=== PATIENT | male | born 1935 | race Asian ===

== ENCOUNTER 2017-01-20 11:06 | Observation (INO) | payer OTHER ==
--- NOTE | 2017-01-20 11:24 | PDOC ---
Attending Attestation - Resident Resident Name: Traci Arreguin - HPI HPI: 01/27/17 10:10 Pt presents to the ED complaining of vertigo that has now resolved. Reported to PMD that he was unable to walk during the episode. Sent to the ED for possible TIA. - Physicial Exam PE: 01/27/17 10:34 Agree with resident exam. PAtient is neurologically intact and ambulatory with a steady gait. - Medical Decision Making 01/27/17 10:42 Pt presents to the ED complaining of vertigo. Neurologically intact without symptoms at this time. Will admit to medicine for TIA work up.
--- NOTE | 2017-01-20 12:48 | PDOC ---
History of Present Illness - General Chief Complaint: Blood Pressure Problem Stated Complaint: BLOOD PRESSURE PROBLEM Time Seen by Provider: 01/20/17 11:23 History Source: Patient, Family Exam Limitations: No Limitations - History of Present Illness Initial Comments: This is an 81 YOM with h/o NIDDM, HTN, prostate CA s/p treatment, and distant ICH requiring surgery who presents c/o dizziness. He cannot recall the exact timing of the dizziness, but states it occurred overnight at about midnight when he stood up from bed to use the bathroom. He told his family about this in the morning and they brought him to see his PCP, Dr. Decker, who was concerned that he reported not being able to walk during this episode. Dr. Decker instructed the patient to come into the ED for evaluation. Here in the ED, the patient is somewhat of an unreliable historian. He cannot further describe the dizziness or the timing. He denies any associated symptoms, or any recent illness, falls, or other injuries. Past History - Past Medical History Allergies/Adverse Reactions: Allergies Allergy/AdvReac Type Severity Reaction Status Date / Time No Known Allergies Allergy Verified 01/20/17 11:08 Home Medications: Ambulatory Orders Aspirin/Dipyridamole [Aggrenox -] 1 combo PO BID #60 capsule 01/21/17 Bicalutamide 50 mg PO DAILY #0 tab 01/21/17 Cholecalciferol (Vitamin D3) [Vitamin D3] 2,000 unit PO DAILY #0 tab 01/21/17 Cyanocobalamin [Vitamin B12 -] 1,000 mcg PO DAILY #0 tab 01/21/17 Fenofibrate Nanocrystallized [Tricor] 145 mg PO DAILY #0 tab 01/21/17 Ferrous Sulfate 325 mg PO BID #0 tab 01/21/17 Metformin HCl 500 mg PO BID #0 tab 01/21/17 Oxybutynin Chloride 5 mg PO DAILY #0 tab 01/21/17 Oxybutynin Chloride [Ditropan -] 5 mg PO BID tablet 01/21/17 Ramipril 5 mg PO DAILY #0 tab 01/21/17 Ramipril [Altace] 5 mg PO DAILY capsule 01/21/17 Tamsulosin HCl 0.4 mg PO DAILY #0 tab 01/21/17 Tamsulosin HCl [Flomax -] 0.4 mg PO DAILY@0830 cap.er.24h 01/21/17 Metoprolol Tartrate [Lopressor -] 25 mg PO BID #60 tablet 01/23/17 Cancer: Yes (PROSTATE) COPD: No Diabetes: Yes HTN: Yes - Surgical History Neurologic Surgery: Yes (BRAIN) - Suicide/Smoking/Psychosocial Hx Smoking History: Never smoked Have you smoked in the past 12 months: No Hx Alcohol Use: No Drug/Substance Use Hx: No Substance Use Type: None Review of Systems - Review of Systems Able to Perform ROS?: Yes Constitutional: No: Chills, Fever, Unexplained wgt Loss HEENTM: No: Nose Congestion, Throat Pain Respiratory: No: Cough, Shortness of Breath Cardiac (ROS): No: Chest Pain, Palpitations ABD/GI: No: Constipated, Diarrhea, Nausea, Vomiting : No: Burning, Dysuria Musculoskeletal: No: Back Pain, Neck Pain Integumentary: No: Bruising, Rash Neurological: Yes: Dizziness, Other (difficulty walking). No: Headache, Numbness, Tingling Endocrine: No: Unexplained Weight Gain, Unexplained Weight Loss *Physical Exam - Vital Signs Last Vital Signs Temp Pulse Resp BP Pulse Ox 98.6 F 61 20 131/71 96 01/23/17 02:00 01/23/17 06:00 01/23/17 06:00 01/23/17 06:00 01/23/17 09:00 - Physical Exam General Appearance: Yes: Nourished, Appropriately Dressed, Other (pleasant elderly male accompanied by supportive family members, patient answers many questions regarding recent events with "yo no se", pleasant, alert, and oriented ). No: Apparent Distress HEENT: positive: EOMI, ZENY, Normal Voice, Hearing Grossly Normal. negative: Scleral Icterus (R), Scleral Icterus (L), Nasal Congestion Neck: positive: Trachea midline, Supple. negative: Tender, Rigid Respiratory/Chest: positive: Lungs Clear, Normal Breath Sounds. negative: Respiratory Distress, Crackles, Rhonchi, Stridor, Wheezing Cardiovascular: positive: Regular Rhythm, Regular Rate. negative: Murmur Gastrointestinal/Abdominal: positive: Normal Bowel Sounds, Soft. negative: Tender, Organomegaly, Pulsatile Mass, Guarding Musculoskeletal: positive: Normal Inspection. negative: Decreased Range of Motion, Vertebral Tenderness Extremity: positive: Normal Capillary Refill, Normal Inspection, Normal Range of Motion. negative: Tender, Cyanosis Integumentary: positive: Normal Color, Dry, Warm. negative: Erythema, Rash, Bruising Neurologic: positive: desktop support technician II-XII NML intact, Fully Oriented, Alert, Normal Mood/ Affect, Normal Response, Motor Strength 5/5, Finger to Nose (normal), Other ( gait normal except heel-to-toe gait during which patient falls to the left on repeated tries). negative: Facial Droop, Numbness, Sensory Deficit, Confused ED Treatment Course - LABORATORY CBC & Chemistry Diagram: 01/20/17 12:55 01/23/17 08:50 - ADDITIONAL ORDERS Additional order review: 01/20/17 12:55 RBC 3.88 L MCV 96.3 H MCHC 32.7 RDW 13.6 MPV 11.5 H Neutrophils % 73.5 Lymphocytes % 14.8 D Monocytes % 8.3 Eosinophils % 2.4 D Basophils % 1.0 - RADIOLOGY Radiology Studies Ordered: Category Date Time Status BRAIN MRI W/O CONTRAST [MRI] Stat MRI 01/20/17 12:50 Completed CHEST PA & LAT [RAD] Stat Radiology 01/20/17 12:52 Completed - Medications Given in the ED: ED Medications Discontinued Medications Generic Name Dose Route Start Last Admin Trade Name Freq PRN Reason Stop Dose Admin Dipyridamole/Aspirin 1 combo 01/21/17 08:50 01/23/17 09:27 Aggrenox - PO 1 combo BID KUNAL Administration Insulin Aspart 1 vial 01/20/17 12:30 01/23/17 07:02 Novolog Vial Sliding Scale - SQ Not Given [facility] Protocol Metformin HCl 500 mg 01/20/17 12:30 01/21/17 17:20 Glucophage - PO Not Given BID@0700,1630 [facility] Metoprolol Tartrate 50 mg 01/21/17 17:31 01/21/17 17:51 Lopressor - PO 01/21/17 17:32 50 mg ONCE ONE Administration Metoprolol Tartrate 25 mg 01/22/17 22:00 01/23/17 09:27 Lopressor - PO 25 mg BID KUNAL Administration Oxybutynin Chloride 5 mg 01/20/17 22:00 01/23/17 09:27 Ditropan - PO 5 mg BID KUNAL Administration Ramipril 5 mg 01/21/17 10:00 01/23/17 09:27 Altace - PO 5 mg DAILY KUNAL Administration Sitagliptin Phosphate 50 mg 01/20/17 12:30 01/23/17 07:04 Januvia - PO 50 mg DAILY@0700 KUNAL Administration Tamsulosin HCl 0.4 mg 01/20/17 12:30 01/23/17 09:27 Flomax - PO 0.4 mg DAILY@0830 KUNAL Administration Medical Decision Making - Medical Decision Making 81 YOM with h/o NIDDM, HTN, prostate CA s/p treatment, and distant ICH requiring surgery. Presents with vague room-spinning dizziness since an unknown time as Pt has some difficulty with timeline of events. His best guess is that this began just after midnight this morning. Questionable also whether his symptoms are episodic, or mild persistent. On exam VS wnl, no focal deficits, but gait is unsteady when heel-to-toe walking , otherwise exam wnl. Ordered is MRI brain, CXR, EKG, CBCD, CMP, Mg, Phos, TS, coags, UA cx MRI brain without e/o acute intracranial process. Lab work unremarkable. He is not a TPA candidate given that the estimated time of onset was around midnight per the patient. He also has minimal disability on NIHSS. The patient is admitted to telemetry to Dr. Decker, given continued symptoms and unsteady gait on exam. *DC/Admit/Observation/Transfer Diagnosis at time of Disposition: Dizziness - Discharge Dispostion Disposition: TRANSFER ACUTE CARE/OTHER HOSP Condition at time of disposition: Fair Admit: Yes - Prescriptions - Referrals - Patient Instructions - Post Discharge Activity NIH Stroke Scale - Last Known Well Date/Time & Onset Date Last Known Well: 01/20/17 Time Last Known Well: 00:05 - Initial Evaluation Level of consciousness: Alert Ask patient the month and their age: Answers both correctly Ask patient to open & close eyes; make fist and let go: Obeys both correctly Best gaze (horizontal eye movement): Normal Visual field testing: No visual field loss Facial paresis (Show teeth/raise eyebrows/close eyes tight): Normal symmetrical movement Motor Function: Left Arm: Normal Motor Function: Right Arm: Normal (extends arm 90 (or 45) degrees for 10 seconds without drift Motor Function: Left Leg: Normal (extends leg 30 degrees for 5 seconds without drift) Motor Function: Right Leg: Normal (extends leg 30 degrees for 5 seconds without drift) Limb Ataxia: No ataxia Sensory(Use pinprick test arms,legs,trunk,face/side to side): Normal Best language (Describe picture, name items, read sentences): No Aphasia Dysarthria (read several words): Normal articulation Extinction and Inattention: No abnormality - Total Score NIH Stroke Scale Score: 0 tPA Exclusion checklist 3-4.5h - Time Elapsed Date last known well: 01/20/17 Time last known well: 00:05 Elaspsed time: 12 Day(s) and 18 Hour(s) and 18 Minutes - Thrombolytic Therapy Candidate Is patient eligible for thrombolytic therapy: No - Exclusion Criteria 3-4.5 hr SBP greater than 185 or DBP greater than 110mmHg despite tx: No Recent IC/spinal surgery,head trauma or stroke<3mos.: No Hx IC hemorrhage, IC neoplasm, AV malformation or aneurysm: Yes Active internal bleeding: No Blding diathesis(low plt ct, inc PTT,INR>1.7 or use of NOAC): No Symptoms suggest subarachnoid hemorrhage: No CT demonstrates multilobar infarct(>1/3 cerebral hemiphere): No Arterial puncture at noncompressible site in previous 7 days: No Blood glucose concentration less than 50mg/dL (2.7mmol/L): No - Relative Exclusion Criteria 3-4.5 hr Life expectancy <1 yr or severe co-morbid illness: No : No Patient/family refused: No Rapid improvement: No Stroke severity too mild: Yes Recent acute PR (w/in previous 3 months): No Seizure at onset with postictal residual neuro impairments: No Major surgery or serious trauma w/in previous 14 days: No Recent GI or hemorrhage (w/in previous 21 days): No - Add'l Relative Exclusion 3-4.5 hr Age > 80: Yes Hx of both diabetes AND prior ischemic stroke: No Taking an oral anticoagulant regardless of INR: No NIHSS >25: No - Ineligibility reason(s) Reasons No tPA given: See reason(s) noted above
[2017-01-20 13:35] LABS: ALBUMIN 4.3 g/dl (3.4-5.0); ANION GAP 9 (8-16); BILIRUBIN,TOTAL 0.4 mg/dL (0.2-1.0); CALCIUM 9.4 mg/dL (8.5-10.1); CO2 26 mmol/L (21-32); CREATININE 1.1 mg/dL (0.7-1.3); GLUCOSE,RANDOM 79 mg/dL (74-106); PHOSPHOROUS 3.2 mg/dL (2.5-4.9); SGOT/AST 17 U/L (15-37); SGPT/ALT 18 U/L (12-78); TOT PROT 7.4 g/dl (6.4-8.2)
[2017-01-20 13:36] LABS: ALK PHOS 21 U/L (45-117)
[2017-01-20 13:39] LABS: EOSINOPHIL 2.4 % (0-4.5); MCH 31.5 pg (25.7-33.7); MCHC 32.7 g/dl (32.0-35.9); MEAN CELL VOLUME 96.3 fl (80-96); MEAN PLT VOLUME 11.5 fl (7.5-11.1); NEUTROPHILS 73.5 % (42.8-82.8); PLATELET COUNT 126 K/MM3 (134-434); RDW 13.6 % (11.9-15.9); WHITE BLOOD COUNT 4.3 K/mm3 (4.0-10.0)
[2017-01-20 14:30] LABS: INR 0.96 (0.82-1.09); PROTHROMBIN TIME (PATIENT) 10.9 SEC (9.98-11.88)
[2017-01-20 14:33] LABS: ACTIVATED PTT 27.1 SECONDS (26.9-34.4)
[2017-01-20] MEDS ORDERED: metFORMIN HCL 500 MG TABLET (FP) ONE (15:05)
[2017-01-20] MEDS ORDERED: sitaGLIPtin PHOSPHATE 50 MG TABLET ONE (15:05)
[2017-01-20] MEDS ORDERED: TAMSULOSIN HCL 0.4 MG CAP.ER.24H (FP) ONE (15:05)
[2017-01-20] MEDS: sitaGLIPtin PHOSPHATE 50 MG TABLET PO SCH (15:07)
[2017-01-20] MEDS: TAMSULOSIN HCL 0.4 MG CAP.ER.24H (FP) PO SCH (15:07)
[2017-01-20] MEDS: metFORMIN HCL 500 MG TABLET (FP) PO SCH ×2 (15:07→16:51)
--- NOTE | 2017-01-20 15:21 | HP ---
Admitting History and Physical - Primary Care Physician PCP: Pollo Decker - Admission Chief Complaint: DIZZY/PRESYNCOPE History of Present Illness: SENT FROM MY OFFICE WITH ORTHOSTATIC HYPOTENSION, DM,C/O DIZZINESS AND UNSTEADY GAIT. DENIES HEADACHE/CHEST PAIN/SOB. History Source: Patient - Past Medical History Cardiovascular: Yes: HTN Endocrine: Yes: Diabetes Mellitus - Smoking History Smoking history: Never smoked Have you smoked in the past 12 months: No - Alcohol/Substance Use Hx Alcohol Use: No Home Medications - Allergies Allergies/Adverse Reactions: Allergies Allergy/AdvReac Type Severity Reaction Status Date / Time No Known Allergies Allergy Verified 01/20/17 11:08 - Home Medications Home Medications: Ambulatory Orders Aspirin [ASA -] 81 mg PO ASDIR 06/09/15 Bicalutamide 50 mg PO DAILY 06/09/15 Metformin HCl 500 mg PO BID 06/09/15 Oxybutynin Chloride 5 mg PO DAILY 06/09/15 Ramipril 5 mg PO DAILY 06/09/15 Tamsulosin HCl 0.4 mg PO DAILY 06/09/15 Cholecalciferol (Vitamin D3) [Vitamin D3] 2,000 unit PO DAILY 01/20/17 Cyanocobalamin [Vitamin B12 -] 1,000 mcg PO DAILY 01/20/17 Fenofibrate Nanocrystallized [Tricor] 145 mg PO DAILY 01/20/17 Ferrous Sulfate 325 mg PO BID 01/20/17 Saxagliptin HCl [Onglyza] 5 mg PO DAILY 01/20/17 Review of Systems - Review of Systems Constitutional: reports: Weakness Eyes: reports: No Symptoms HENT: reports: No Symptoms Neck: reports: No Symptoms Cardiovascular: reports: No Symptoms Respiratory: reports: No Symptoms Gastrointestinal: reports: No Symptoms Genitourinary: reports: No Symptoms Musculoskeletal: reports: No Symptoms Integumentary: reports: No Symptoms Neurological: reports: Dizziness, Pre-Existing Deficit, Syncope, Weakness Endocrine: reports: No Symptoms Hematology/Lymphatic: reports: No Symptoms Psychiatric: reports: No Symptoms Physical Examination Vital Signs: Vital Signs Temperature 97.7 F 01/20/17 11:09 Pulse Rate 62 01/20/17 11:35 Respiratory Rate 18 01/20/17 11:09 Blood Pressure 147/77 01/20/17 11:09 O2 Sat by Pulse Oximetry (%) 100 01/20/17 11:35 Constitutional: Yes: Mild Distress Eyes: Yes: WNL HENT: Yes: WNL Neck: Yes: WNL Cardiovascular: Yes: WNL Respiratory: Yes: WNL Gastrointestinal: Yes: WNL Renal/: Yes: WNL Musculoskeletal: Yes: Muscle Weakness Extremities: Yes: WNL Edema: No Peripheral Pulses WNL: Yes Integumentary: Yes: WNL Wound/Incision: Yes: Clean/Dry Neurological: Yes: Unsteady Gait ...Motor Strength: WNL Psychiatric: Yes: WNL Labs: CBC, BMP 01/20/17 12:55 01/20/17 12:55 Problem List - Problems (1) DMII (diabetes mellitus, type 2) Code(s): E11.9 - TYPE 2 DIABETES MELLITUS WITHOUT COMPLICATIONS Qualifiers: Diabetes mellitus complication status: without complication (2) Dizziness Code(s): R42 - DIZZINESS AND GIDDINESS (3) Fall Code(s): W19.XXXA - UNSPECIFIED FALL, INITIAL ENCOUNTER Qualifiers: Encounter type: initial encounter Qualified Code(s): W19.XXXA - Unspecified fall, initial encounter Assessment/Plan PT EVAL TELEMETRY OBSERVATION CARDIO AND NEURO EVAL MRI BRAIN OOB TO CHAIR WITH ASSIST ENDOCRINE CONSULT POSSIBLE JANUVIA 100MG WITH METFORMIN TO STRONG
[2017-01-20 15:32] VITALS: BMI 20.6
[2017-01-20 15:56] LABS: URINE APPEARANCE CLEAR; URINE BILIRUBIN NEGATIVE (NEGATIVE); URINE BLOOD NEGATIVE (NEGATIVE); URINE COLOR LTYELLOW; URINE GLUCOSE (UA) NEGATIVE (NEGATIVE); URINE KETONE NEGATIVE (NEGATIVE); URINE NITRITE NEGATIVE (NEGATIVE); URINE PROTEIN NEGATIVE (NEGATIVE); URINE UROBILINOGEN NEGATIVE mg/dL (0.2-1.0)
[2017-01-20] MEDS: INSULIN SLIDING SCALE (NOVOLOG) 1 VIAL SQ SCH ×2 (16:51→22:37)
[2017-01-20 18:52] LABS: URINE LEUK ESTERASE Negative (NEGATIVE)
--- NOTE | 2017-01-20 21:50 | CONSULT ---
Consult Consult Specialty:: endocrine Referred by:: dr.[email or web address] pro Reason for Consultation:: diabetes mellitus/neuropathy - History of Present Illness Chief Complaint: weakness and dizzy History of Present Illness: 81 YOM with h/o NIDDM, HTN, prostate CA s/p treatment, and distant ICH requiring surgery who presents c/o dizziness. He cannot recall the exact timing of the dizziness,. He states it occured at night when he got up to use bathroom felt light headed and weak,family concerned brought him to see his pcp,which warranted evaluation for orthostatic bp concerns,he states his sugars have been occasionaly elevated denies low sugars,or blurred vision. - History Source History Provided By: Patient - Past Medical History Cardio/Vascular: Yes: HTN Endocrine: Yes: Diabetes Mellitus - Alcohol/Substance Use Hx Alcohol Use: No - Smoking History Smoking history: Never smoked Have you smoked in the past 12 months: No Home Medications - Allergies Allergies/Adverse Reactions: Allergies Allergy/AdvReac Type Severity Reaction Status Date / Time No Known Allergies Allergy Verified 01/20/17 11:08 - Home Medications Home Medications: Ambulatory Orders Aspirin [ASA -] 81 mg PO ASDIR 06/09/15 Bicalutamide 50 mg PO DAILY 06/09/15 Metformin HCl 500 mg PO BID 06/09/15 Oxybutynin Chloride 5 mg PO DAILY 06/09/15 Ramipril 5 mg PO DAILY 06/09/15 Tamsulosin HCl 0.4 mg PO DAILY 06/09/15 Cholecalciferol (Vitamin D3) [Vitamin D3] 2,000 unit PO DAILY 01/20/17 Cyanocobalamin [Vitamin B12 -] 1,000 mcg PO DAILY 01/20/17 Fenofibrate Nanocrystallized [Tricor] 145 mg PO DAILY 01/20/17 Ferrous Sulfate 325 mg PO BID 01/20/17 Saxagliptin HCl [Onglyza] 5 mg PO DAILY 01/20/17 Review of Systems - Review of Systems Constitutional: reports: Lethargy, Loss of Appetite, Weakness Eyes: reports: No Symptoms HENT: reports: No Symptoms Neck: reports: No Symptoms Cardiovascular: reports: No Symptoms Respiratory: reports: Exercise Intolerance Gastrointestinal: reports: Bloating, Constipation Genitourinary: reports: Frequency Breasts: reports: No Symptoms Reported Musculoskeletal: reports: No Symptoms Integumentary: reports: No Symptoms Neurological: reports: Numbness, Weakness Endocrine: reports: No Symptoms Physical Exam Vital Signs: Vital Signs Temperature 97.4 F L 01/20/17 17:00 Pulse Rate 63 01/20/17 17:00 Respiratory Rate 18 01/20/17 16:30 Blood Pressure 137/77 01/20/17 17:00 O2 Sat by Pulse Oximetry (%) 100 01/20/17 16:30 Constitutional: Yes: Anxious Eyes: Yes: EOM Intact HENT: Yes: Normocephalic Neck: Yes: Trachea Midline Cardiovascular: Yes: Regular Rate and Rhythm Respiratory: Yes: CTA Bilaterally Gastrointestinal: Yes: Normal Bowel Sounds ...Rectal Exam: Yes: Deferred Renal/: Yes: WNL Musculoskeletal: Yes: WNL Extremities: Yes: WNL Labs: CBC, BMP 01/20/17 12:55 01/20/17 12:55 Problem List - Problems (1) DMII (diabetes mellitus, type 2) Code(s): E11.9 - TYPE 2 DIABETES MELLITUS WITHOUT COMPLICATIONS Qualifiers: Diabetes mellitus complication status: without complication (2) Dizziness Code(s): R42 - DIZZINESS AND GIDDINESS (3) Fall Code(s): W19.XXXA - UNSPECIFIED FALL, INITIAL ENCOUNTER Qualifiers: Encounter type: initial encounter Qualified Code(s): W19.XXXA - Unspecified fall, initial encounter Assessment/Plan Current Active Problems DMII (diabetes mellitus, type 2) (Acute) Dizziness (Acute) Abnormal Lab Results 01/20/17 01/20/17 12:55 12:55 RBC 3.88 L MCV 96.3 H Plt Count 126 L MPV 11.5 H BUN 24 H Alkaline Phosphatase 21 L Laboratory Results - last 24 hr 01/20/17 01/20/17 01/20/17 12:55 12:55 12:55 WBC 4.3 D RBC 3.88 L Hgb 12.2 Hct 37.3 MCV 96.3 H MCH 31.5 MCHC 32.7 RDW 13.6 Plt Count 126 L MPV 11.5 H Neutrophils % 73.5 Lymphocytes % 14.8 D Monocytes % 8.3 Eosinophils % 2.4 D Basophils % 1.0 PT with INR INR PTT (Actin FS) Sodium 139 Potassium 4.2 Chloride 104 Carbon Dioxide 26 Anion Gap 9 BUN 24 H Creatinine 1.1 Creat Clearance w eGFR > 60 POC Glucometer Random Glucose 79 D Hemoglobin A1c % 5.6 Calcium 9.4 Phosphorus 3.2 Magnesium 2.0 Total Bilirubin 0.4 AST 17 ALT 18 Alkaline Phosphatase 21 L Total Protein 7.4 Albumin 4.3 Urine Color Urine Appearance Urine pH Ur Specific [place] Urine Protein Urine Glucose (UA) Urine Ketones Urine Blood Urine Nitrite Urine Bilirubin Urine Urobilinogen Ur Leukocyte Esterase Blood Type Antibody Screen 01/20/17 01/20/17 01/20/17 12:55 12:55 15:42 WBC RBC Hgb Hct MCV MCH MCHC RDW Plt Count MPV Neutrophils % Lymphocytes % Monocytes % Eosinophils % Basophils % PT with INR 10.90 INR 0.96 PTT (Actin FS) 27.1 Sodium Potassium Chloride Carbon Dioxide Anion Gap BUN Creatinine Creat Clearance w eGFR POC Glucometer Random Glucose Hemoglobin A1c % Calcium Phosphorus Magnesium Total Bilirubin AST ALT Alkaline Phosphatase Total Protein Albumin Urine Color Ltyellow Urine Appearance Clear Urine pH 5.0 Ur Specific [place] 1.012 Urine Protein Negative Urine Glucose (UA) Negative Urine Ketones Negative Urine Blood Negative Urine Nitrite Negative Urine Bilirubin Negative Urine Urobilinogen Negative Ur Leukocyte Esterase Negative Blood Type A POSITIVE Antibody Screen Negative 01/20/17 16:46 WBC RBC Hgb Hct MCV MCH MCHC RDW Plt Count MPV Neutrophils % Lymphocytes % Monocytes % Eosinophils % Basophils % PT with INR INR PTT (Actin FS) Sodium Potassium Chloride Carbon Dioxide Anion Gap BUN Creatinine Creat Clearance w eGFR POC Glucometer 195 Random Glucose Hemoglobin A1c % Calcium Phosphorus Magnesium Total Bilirubin AST ALT Alkaline Phosphatase Total Protein Albumin Urine Color Urine Appearance Urine pH Ur Specific [place] Urine Protein Urine Glucose (UA) Urine Ketones Urine Blood Urine Nitrite Urine Bilirubin Urine Urobilinogen Ur Leukocyte Esterase Blood Type Antibody Screen imp: dm type 2 continue janumet 50/500mg bid controlle with current agents
[2017-01-20] MEDS: OXYBUTYNIN CHLORIDE 5 MG TABLET PO SCH (22:37)
[2017-01-21] MEDS: INSULIN SLIDING SCALE (NOVOLOG) 1 VIAL SQ SCH ×4 (06:12→21:27)
[2017-01-21] MEDS: sitaGLIPtin PHOSPHATE 50 MG TABLET PO SCH (06:13)
[2017-01-21] MEDS: metFORMIN HCL 500 MG TABLET (FP) PO SCH ×2 (06:13→17:20)
[2017-01-21 08:07] LABS: CHOLESTEROL 151 mg/dL (50-200)
--- NOTE | 2017-01-21 09:58 | CONSULT ---
Consult - text type - Consultation Consultation Note: Neurology History of Present Illness This is an 81 YOM with h/o NIDDM, HTN, prostate CA s/p treatment, and distant ICH requiring surgery who presents c/o dizziness. He cannot recall the exact timing of the dizziness, but states it occurred overnight at about midnight when he stood up from bed to use the bathroom. He told his family about this in the morning and they brought him to see his PCP, Dr. Decker, who was concerned that he reported not being able to walk during this episode. Dr. Decker instructed the patient to come into the ED for evaluation. Here in the ED, the patient is somewhat of an unreliable historian. He completed MRI brain overnight which showed R posterior frontal CVA which may be incidental vs subclinical. Chronic R thalamick, R basal ganglia, L frontal infarcts noted. Adjusted ASA to Aggrenox for increased CVA protection. Also ordered CD and Echo for further work up. Discussed with patient as well as nurse. Active Medications Dipyridamole/Aspirin (Aggrenox -) 1 combo PO BID [facility] Insulin Aspart (Novolog Vial Sliding Scale -) 1 vial SQ ACHS [facility] PRN Reason: Protocol Last Admin: 01/21/17 06:12 Dose: Not Given Metformin HCl (Glucophage -) 500 mg PO BID@0700,1630 [facility] Last Admin: 01/21/17 06:13 Dose: 500 mg Oxybutynin Chloride (Ditropan -) 5 mg PO BID [facility] Last Admin: 01/20/17 22:37 Dose: 5 mg Ramipril (Altace -) 5 mg PO DAILY [facility] Sitagliptin Phosphate (Januvia -) 50 mg PO DAILY@0700 [facility] Last Admin: 01/21/17 06:13 Dose: 50 mg Tamsulosin HCl (Flomax -) 0.4 mg PO DAILY@0830 [facility] Last Admin: 01/20/17 15:07 Dose: 0.4 mg Review of Systems - Review of Systems Constitutional: reports: Weakness Eyes: reports: No Symptoms HENT: reports: No Symptoms Neck: reports: No Symptoms Cardiovascular: reports: No Symptoms Respiratory: reports: No Symptoms Gastrointestinal: reports: No Symptoms Genitourinary: reports: No Symptoms Musculoskeletal: reports: No Symptoms Integumentary: reports: No Symptoms Neurological: reports: Dizziness, Pre-Existing Deficit, Syncope, Weakness Endocrine: reports: No Symptoms Hematology/Lymphatic: reports: No Symptoms Psychiatric: reports: No Symptoms *Physical Exam Vital Signs Temperature 98.2 F 01/21/17 07:30 Pulse Rate 60 01/21/17 07:30 Respiratory Rate 18 01/21/17 07:30 Blood Pressure 158/76 01/21/17 07:30 O2 Sat by Pulse Oximetry (%) 98 01/20/17 21:00 Constitutional: Yes: Mild Distress Eyes: Yes: WNL HENT: Yes: WNL Neck: Yes: WNL Cardiovascular: Yes: WNL Respiratory: Yes: WNL Gastrointestinal: Yes: WNL Renal/: Yes: WNL Musculoskeletal: Yes: Muscle Weakness Extremities: Yes: WNL Edema: No Peripheral Pulses WNL: Yes Integumentary: Yes: WNL Wound/Incision: Yes: Clean/Dry Neurological: Yes: CN intact, sensory normal, strenght equal b/l, gait antalgic ...Motor Strength: WNL Psychiatric: Yes: WNL CBCD WBC 4.3 K/mm3 (4.0-10.0) D 01/20/17 12:55 RBC 3.88 M/mm3 (4.00-5.60) L 01/20/17 12:55 Hgb 12.2 GM/dL (11.7-16.9) 01/20/17 12:55 Hct 37.3 % (35.4-49) 01/20/17 12:55 MCV 96.3 fl (80-96) H 01/20/17 12:55 MCHC 32.7 g/dl (32.0-35.9) 01/20/17 12:55 RDW 13.6 % (11.9-15.9) 01/20/17 12:55 Plt Count 126 K/MM3 (134-434) L 01/20/17 12:55 MPV 11.5 fl (7.5-11.1) H 01/20/17 12:55 CMP Sodium 139 mmol/L (136-145) 01/20/17 12:55 Potassium 4.2 mmol/L (3.5-5.1) 01/20/17 12:55 Chloride 104 mmol/L (98-107) 01/20/17 12:55 Carbon Dioxide 26 mmol/L (21-32) 01/20/17 12:55 Anion Gap 9 (8-16) 01/20/17 12:55 BUN 24 mg/dL (7-18) H 01/20/17 12:55 Creatinine 1.1 mg/dL (0.7-1.3) 01/20/17 12:55 Creat Clearance w eGFR > 60 (>60) 01/20/17 12:55 Calcium 9.4 mg/dL (8.5-10.1) 01/20/17 12:55 Total Bilirubin 0.4 mg/dL (0.2-1.0) 01/20/17 12:55 AST 17 U/L (15-37) 01/20/17 12:55 ALT 18 U/L (12-78) 01/20/17 12:55 Alkaline Phosphatase 21 U/L (45-117) L 01/20/17 12:55 Total Protein 7.4 g/dl (6.4-8.2) 01/20/17 12:55 Albumin 4.3 g/dl (3.4-5.0) 01/20/17 12:55 Imaging as above Plan 81 YOM with h/o NIDDM, HTN, prostate CA s/p treatment, and distant ICH requiring surgery who presents c/o dizziness. He cannot recall the exact timing of the dizziness, but states it occurred overnight at about midnight when he stood up from bed to use the bathroom. He told his family about this in the morning and they brought him to see his PCP, Dr. Decker, who was concerned that he reported not being able to walk during this episode. Dr. Decker instructed the patient to come into the ED for evaluation. Here in the ED, the patient is somewhat of an unreliable historian. He completed MRI brain overnight which showed R posterior frontal CVA which may be incidental vs subclinical. Chronic R thalamic, R basal ganglia, L frontal infarcts noted. Adjusted ASA to Aggrenox for increased CVA protection. Also ordered CD and Echo for further work up. Blood pressure control, maintain Less than 140/90 Increased hydration recommended Fall precautions Physical therapy Discussed with patient as well as nurse.
[2017-01-21] MEDS ORDERED: ASPIRIN COATED 81 MG TABLET.EC PO SCH (10:00)
[2017-01-21] MEDS: OXYBUTYNIN CHLORIDE 5 MG TABLET PO SCH ×2 (10:32→21:22)
[2017-01-21] MEDS: RAMIPRIL 5 MG CAPSULE (FP) PO SCH (10:32)
[2017-01-21] MEDS: TAMSULOSIN HCL 0.4 MG CAP.ER.24H (FP) PO SCH (10:32)
[2017-01-21] MEDS: ASPIRIN/DIPYRIDAMOLE 25 MG/200 MG CAPSULE (FP) PO SCH ×2 (10:34→21:22)
--- NOTE | 2017-01-21 14:11 | PN ---
Progress Note, Physician - Current Medication List Current Medications: Active Medications Dipyridamole/Aspirin (Aggrenox -) 1 combo PO BID [facility] Last Admin: 01/21/17 10:34 Dose: 1 combo Insulin Aspart (Novolog Vial Sliding Scale -) 1 vial SQ ACHS [facility] PRN Reason: Protocol Last Admin: 01/21/17 12:09 Dose: Not Given Metformin HCl (Glucophage -) 500 mg PO BID@0700,1630 [facility] Last Admin: 01/21/17 06:13 Dose: 500 mg Oxybutynin Chloride (Ditropan -) 5 mg PO BID [facility] Last Admin: 01/21/17 10:32 Dose: 5 mg Ramipril (Altace -) 5 mg PO DAILY [facility] Last Admin: 01/21/17 10:32 Dose: 5 mg Sitagliptin Phosphate (Januvia -) 50 mg PO DAILY@0700 [facility] Last Admin: 01/21/17 06:13 Dose: 50 mg Tamsulosin HCl (Flomax -) 0.4 mg PO DAILY@0830 [facility] Last Admin: 01/21/17 10:32 Dose: 0.4 mg - Objective Vital Signs: Vital Signs Temperature 98.2 F 01/21/17 07:30 Pulse Rate 60 01/21/17 07:30 Respiratory Rate 20 01/21/17 08:00 Blood Pressure 158/76 01/21/17 07:30 O2 Sat by Pulse Oximetry (%) 96 01/21/17 08:00 Labs: CBC, BMP 01/20/17 12:55 01/20/17 12:55 INR, PTT INR 0.96 (0.82-1.09) 01/20/17 12:55 Problem List - Problems (1) DMII (diabetes mellitus, type 2) Code(s): E11.9 - TYPE 2 DIABETES MELLITUS WITHOUT COMPLICATIONS Qualifiers: Diabetes mellitus complication status: without complication (2) Dizziness Code(s): R42 - DIZZINESS AND GIDDINESS (3) Fall Code(s): W19.XXXA - UNSPECIFIED FALL, INITIAL ENCOUNTER Qualifiers: Encounter type: initial encounter Qualified Code(s): W19.XXXA - Unspecified fall, initial encounter
--- NOTE | 2017-01-21 14:21 | DS ---
Physical Examination Vital Signs: Vital Signs Temperature 98.2 F 01/21/17 07:30 Pulse Rate 60 01/21/17 07:30 Respiratory Rate 20 01/21/17 08:00 Blood Pressure 158/76 01/21/17 07:30 O2 Sat by Pulse Oximetry (%) 96 01/21/17 08:00 Findings/Remarks: AWAKE ALERT COMPLETED PT TODAY SOME MEMORY LOSS Constitutional: Yes: Mild Distress Eyes: Yes: WNL HENT: Yes: WNL Neck: Yes: WNL Cardiovascular: Yes: WNL Respiratory: Yes: WNL Gastrointestinal: Yes: WNL Renal/: Yes: WNL Musculoskeletal: Yes: WNL Extremities: Yes: WNL Edema: No Peripheral Pulses WNL: Yes Integumentary: Yes: WNL Wound/Incision: Yes: Clean/Dry Neurological: Yes: Confusion, Unsteady Gait ...Motor Strength: LLE, RLE Psychiatric: Yes: WNL Labs: CBC, BMP 01/20/17 12:55 01/20/17 12:55 Discharge Summary Reason For Visit: DIZZINESS Current Active Problems DMII (diabetes mellitus, type 2) (Acute) Dizziness (Acute) Procedures: Principal: MRI BRAIN Other Procedures: CAROTID DOPPLER Hospital Course: OBSERVATION STATUS, ACUTE CVA, HTN/DM, TREATED WITH AGGRENOX PER NEUROLOGY. LOW DOSE STATIN THERAPY, MONITORED CARDIAC FUNCTION AND BGM. Condition: Fair - Instructions Diet, Activity, Other Instructions: HOME HEALTH AID WITH [facility] ADA/LOW FAT/LOW SODIUM DIET Disposition: VNS/HOME HEALTH CARE - Home Medications Comprehensive Discharge Medication List: Ambulatory Orders Aspirin [ASA -] 81 mg PO ASDIR 06/09/15 Bicalutamide 50 mg PO DAILY 06/09/15 Metformin HCl 500 mg PO BID 06/09/15 Oxybutynin Chloride 5 mg PO DAILY 06/09/15 Ramipril 5 mg PO DAILY 06/09/15 Tamsulosin HCl 0.4 mg PO DAILY 06/09/15 Cholecalciferol (Vitamin D3) [Vitamin D3] 2,000 unit PO DAILY 01/20/17 Cyanocobalamin [Vitamin B12 -] 1,000 mcg PO DAILY 01/20/17 Fenofibrate Nanocrystallized [Tricor] 145 mg PO DAILY 01/20/17 Ferrous Sulfate 325 mg PO BID 01/20/17 Saxagliptin HCl [Onglyza] 5 mg PO DAILY 01/20/17
[2017-01-21] MEDS ORDERED: METOPROLOL TARTRATE 50 MG TABLET (FP) PO ONE (17:31)
--- NOTE | 2017-01-21 17:38 | PN ---
Progress Note (short form) - Note Progress Note: Chief Complaint: Events noted notes reviewed, transient dizziness and gait instability, denies any chest pain or dyspnea History of Present Illness: Seen and examined on telemetry. Full consult dictated - Current Medication List Current Medications Dipyridamole/Aspirin (Aggrenox -) 1 combo PO BID [facility] Last Admin: 01/21/17 10:34 Dose: 1 combo Insulin Aspart (Novolog Vial Sliding Scale -) 1 vial SQ ACHS [facility] PRN Reason: Protocol Last Admin: 01/21/17 12:09 Dose: Not Given Metformin HCl (Glucophage -) 500 mg PO BID@0700,1630 [facility] Last Admin: 01/21/17 17:20 Dose: Not Given Oxybutynin Chloride (Ditropan -) 5 mg PO BID [facility] Last Admin: 01/21/17 10:32 Dose: 5 mg Ramipril (Altace -) 5 mg PO DAILY [facility] Last Admin: 01/21/17 10:32 Dose: 5 mg Sitagliptin Phosphate (Januvia -) 50 mg PO DAILY@0700 [facility] Last Admin: 01/21/17 06:13 Dose: 50 mg Tamsulosin HCl (Flomax -) 0.4 mg PO DAILY@0830 [facility] Last Admin: 01/21/17 10:32 Dose: 0.4 mg Review of Systems - Review of Systems Constitutional: denies: Chills, Fever Cardiovascular: As noted above Respiratory: denies: Cough or Sputum Production Gastrointestinal: denies: Nausea, Vomiting, Diarrhea, Constipation or Abdominal Discomfort Neurological: No Symptoms Reported - Objective Vital Signs: Last Vital Signs Temp Pulse Resp BP Pulse Ox 98.0 F 77 18 160/82 96 01/21/17 14:32 01/21/17 14:32 01/21/17 14:32 01/21/17 14:32 01/21/17 08:00 Intake & Output 01/18/17 01/19/17 01/20/17 01/21/17 23:59 23:59 23:59 23:59 Intake Total 250 450 Balance 250 450 Weight 124 lb Neck: Supple Negative JVD No Bruit Cardiovascular: S1 S2 Regular Rate and Rhythm Grade 1/6 PRABHU Respiratory: Clear to A&P Bilaterally Gastrointestinal: Soft Benign Normal Bowel Sounds Ext: No Edema Labs: CBC, BMP 01/20/17 12:55 01/20/17 12:55 INR, PTT INR 0.96 (0.82-1.09) 01/20/17 12:55 Hepatic Panel Total Bilirubin 0.4 mg/dL (0.2-1.0) 01/20/17 12:55 AST 17 U/L (15-37) 01/20/17 12:55 ALT 18 U/L (12-78) 01/20/17 12:55 Alkaline Phosphatase 21 U/L (45-117) L 01/20/17 12:55 Albumin 4.3 g/dl (3.4-5.0) 01/20/17 12:55 Assessment/Plan ASSESSMENT: 1. Dizziness etiology of which is to be determined 2. Evidence of CVA on MRI study of the brain, multiple locations 3. Coronary artery disease angina pectoris 4. 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 Hypertension 6. Diabetes mellitus 7. Hypercholesterolemia 8. Carotid stenosis 9. Chronic kidney disease 10. Thrombocytopenia PLAN: 1. Continue Altace 2. Initiate beta esther therapy in form of Lopressor 3. Continue Aggrenox therapy as recommended by neurology 4. Await echocardiography report, may require transesophageal echocardiography 5. Await neck CTA report 6. Patient may require extended monitoring to exclude potential paroxysmal atrial fibrillation as a culprit for the above-noted abnormal MRI of the brain/ multiple infarcts Tata Maynard M.D.
--- NOTE | 2017-01-21 18:21 | EKG ---
Test Reason : Blood Pressure : / mmHG Vent. Rate : 059 BPM Atrial Rate : 059 BPM P-R Int : 214 ms QRS Dur : 086 ms QT Int : 416 ms P-R-T Axes : 043 -17 000 degrees QTc Int : 411 ms SINUS BRADYCARDIA WITH 1ST DEGREE A-V BLOCK OTHERWISE NORMAL ECG WHEN COMPARED WITH ECG OF 09-JUN-2015 16:12, NO SIGNIFICANT CHANGE WAS FOUND CLINICAL CORRELATION IS RECOMMENDED Confirmed by MIKE ADRIAN MD ([id number]) on 01/21/2017 6:21:17 PM Referred By: Confirmed By:IMKE ADRIAN MD
--- NOTE | 2017-01-21 19:28 | CONS ---
DATE OF CONSULTATION: 01/21/2017 REQUESTING PHYSICIAN: Pollo Decker M.D. CHIEF COMPLAINT: Dizziness, cardiovascular evaluation. HISTORY OF PRESENT ILLNESS: An 81-year-old man of [place] descent known to our service who was last evaluated in our office December of 2013 with known history of coronary artery disease, negative myocardial perfusion imaging study for myocardial ischemia December 09, 2013, diastolic left ventricular dysfunction with class 0 [place] [employer] classification left ventricular failure, carotid artery disease mild to moderate in severity on carotid Doppler study performed June 11, 2013, peripheral vascular disease mild in severity on peripheral arterial testing performed December 06, 2013, hypertensive cardiovascular disease, diabetes mellitus, hypercholesterolemia, heart murmur related to aortic valve sclerosis with no evidence of aortic valve stenosis, prostate carcinoma post radiation therapy, chronic anemia, who was evaluated by his primary care provider yesterday at which point he had reported dizziness, in view of which hospitalization was recommended for further evaluation and management. Dizziness and gait unsteadiness was noted by the patient. He did not report any associated presyncope or syncope. Patient did not report any associated palpitations. Patient did not report any recent chest discomfort. Patient reports dyspnea with moderate physical examination. Patient denies any orthopnea, paroxysmal nocturnal dyspnea, or peripheral edema. Patient denies any fatigue or tiredness. Upon evaluation in the emergency room, MRI of the brain was performed which revealed evidence of multiple infarcts. Carotid Doppler study in addition was performed which revealed evidence of carotid artery disease. Subsequently, neck CTA was performed, results of which are not available at the moment. PAST MEDICAL HISTORY: Coronary artery disease, negative myocardial perfusion imaging study for myocardial ischemia, angina pectoris, diastolic left ventricular dysfunction with class 0 [place] [employer] classification left ventricular failure, carotid artery disease, peripheral vascular disease, hypertensive cardiovascular disease, diabetes mellitus, hypercholesterolemia, heart murmur related to aortic valve sclerosis with no evidence of aortic valve stenosis, prostate carcinoma post radiation therapy, chronic anemia. PAST SURGICAL HISTORY: None other than radiation seed implants for management of the above-noted prostate carcinoma. SOCIAL HISTORY: Retired, , denies tobacco abuse, but admits to social alcohol intake. FAMILY HISTORY: Positive coronary artery disease. ALLERGIES: None reported. MEDICAL THERAPY: At home included Altace 5 mg once a day, TriCor 145 mg once a day, Ecotrin 81 mg once a day, metformin 500 mg twice a day, Casodex 50 mg once a day, oxybutynin 5 mg once a day, Flomax 0.4 mg once a day. REVIEW OF SYSTEMS: Head and neck: Denies headache, photophobia, blurring of vision. Respiratory: No cough, sputum production. Cardiovascular: As noted above. Gastrointestinal: Denies nausea, vomiting, diarrhea, abdominal discomfort. Genitourinary: Reports urinary frequency. Musculoskeletal: History of degenerative joint disease. PHYSICAL EXAMINATION: Vital signs: Blood pressure 160/82 mmHg, pulse rate is 77 beats per minute, temperature 98.0, respirations 18. Head/Neck: Pupils equal, reactive to light and accommodation. Extraocular muscles intact. Anicteric sclerae. Negative JVD. No bruit appreciated. Chest: Clear to auscultation, percussion. Cardiovascular: S1, S2. Regularly. Grade 1/6 systolic ejection murmur. No clicks or gallops. Abdomen: Soft, benign. Normoactive bowel sounds. Extremity: Negative edema. 1+ distal pulses. No calf tenderness. Electrocardiogram reveals sinus rhythm with nonspecific T wave abnormality. CBC reveals white cell count 4.3, hemoglobin 12.2, platelet count 126. INR 0.96. Basic metabolic profile reveals sodium 139, potassium 4.2, BUN 24, creatinine 1.1, cholesterol 151, LDL 72, HDL 75, triglyceride 59. ASSESSMENT: 1. Dizziness, etiology of which is to be determined. 2. Evidence of CVA on MRI study of the brain, multiple locations. 3. Coronary artery disease, negative myocardial perfusion imaging study, angina pectoris, stable. 4. Diastolic left ventricular dysfunction with class 0 [place] [employer] classification left ventricular failure. 5. Hypertensive cardiovascular disease. 6. Diabetes mellitus. 7. Hypercholesterolemia. 8. Carotid stenosis. 9. Chronic kidney disease. 10. Thrombocytopenia. PLAN: 1. Continuation of Altace therapy. 2. Initiation of beta esther therapy in the form of Lopressor. 3. Continuation of Aggrenox therapy as recommended by neurology. 4. Await transesophageal echocardiography report, which was performed earlier today, but patient may require transesophageal echocardiography. 5. Await neck CTA report, performed earlier today. 6. Patient may require extended monitoring to explore potential paroxysmal atrial fibrillation as a culprit for the above noted abnormal MRI of the brain/multiple infarcts. Thank you for the kind referral. MARTA TRACEY M.D. SHANTHI/[id number]
--- NOTE | 2017-01-21 20:29 | CONSULT ---
Consult - Past Medical History Cardio/Vascular: Yes: HTN Endocrine: Yes: Diabetes Mellitus - Alcohol/Substance Use Hx Alcohol Use: No - Smoking History Smoking history: Never smoked Have you smoked in the past 12 months: No Home Medications - Allergies Allergies/Adverse Reactions: Allergies Allergy/AdvReac Type Severity Reaction Status Date / Time No Known Allergies Allergy Verified 01/20/17 11:08 - Home Medications Home Medications: Ambulatory Orders Aspirin/Dipyridamole [Aggrenox -] 1 combo PO BID #60 capsule 01/21/17 Bicalutamide 50 mg PO DAILY #0 tab 01/21/17 Cholecalciferol (Vitamin D3) [Vitamin D3] 2,000 unit PO DAILY #0 tab 01/21/17 Cyanocobalamin [Vitamin B12 -] 1,000 mcg PO DAILY #0 tab 01/21/17 Fenofibrate Nanocrystallized [Tricor] 145 mg PO DAILY #0 tab 01/21/17 Ferrous Sulfate 325 mg PO BID #0 tab 01/21/17 Metformin HCl 500 mg PO BID #0 tab 01/21/17 Oxybutynin Chloride 5 mg PO DAILY #0 tab 01/21/17 Oxybutynin Chloride [Ditropan -] 5 mg PO BID tablet 01/21/17 Ramipril 5 mg PO DAILY #0 tab 01/21/17 Ramipril [Altace] 5 mg PO DAILY capsule 01/21/17 Tamsulosin HCl 0.4 mg PO DAILY #0 tab 01/21/17 Tamsulosin HCl [Flomax -] 0.4 mg PO DAILY@0830 cap.er.24h 01/21/17 Physical Exam Vital Signs: Vital Signs Temperature 98.1 F 01/21/17 17:00 Pulse Rate 65 01/21/17 17:00 Respiratory Rate 20 01/21/17 17:00 Blood Pressure 182/83 01/21/17 17:00 O2 Sat by Pulse Oximetry (%) 96 01/21/17 08:00 Labs: CBC, BMP 01/20/17 12:55 01/20/17 12:55 Assessment/Plan vascular Surgery This is an 81 YOM with h/o NIDDM, HTN, prostate CA s/p treatment, and distant ICH requiring surgery who presents c/o dizziness. He cannot recall the exact timing of the dizziness, but states it occurred overnight at about midnight when he stood up from bed to use the bathroom. He told his family about this in the morning and they brought him to see his PCP, Dr. Decker, who was concerned that he reported not being able to walk during this episode. Dr. Decker instructed the patient to come into the ED for evaluation. Here in the ED, the patient is somewhat of an unreliable historian. He states that these episodes Past History - Past Medical History Allergies/Adverse Reactions: Allergies Allergy/AdvReac Type Severity Reaction Status Date / Time No Known Allergies Allergy Verified 01/20/17 11:08 Home Medications: Ambulatory Orders Aspirin [ASA -] 81 mg PO ASDIR 06/09/15 Bicalutamide 50 mg PO DAILY 06/09/15 Metformin HCl 500 mg PO BID 06/09/15 Oxybutynin Chloride 5 mg PO DAILY 06/09/15 Ramipril 5 mg PO DAILY 06/09/15 Sitagliptin Phosphate [Januvia] 100 mg PO DAILY 06/09/15 Tamsulosin HCl 0.4 mg PO DAILY 06/09/15 Cancer: Yes (PROSTATE) COPD: No Diabetes: Yes HTN: Yes PE Head - NC/At Lung - CTA heart - RRR abd - soft,nt,nd ext - FROM x 4 Good muscle strength. A/P S/p Dizziness. 1. CArotid doppler reviewed -- No significant stenosis found. 2. CTA carotids done -- no official read. Will follow read. Dario angeles DO
[2017-01-22] MEDS: INSULIN SLIDING SCALE (NOVOLOG) 1 VIAL SQ SCH ×4 (06:08→21:28)
[2017-01-22] MEDS: sitaGLIPtin PHOSPHATE 50 MG TABLET PO SCH (06:09)
[2017-01-22] MEDS: TAMSULOSIN HCL 0.4 MG CAP.ER.24H (FP) PO SCH (07:54)
[2017-01-22] MEDS: RAMIPRIL 5 MG CAPSULE (FP) PO SCH (09:37)
[2017-01-22] MEDS: ASPIRIN/DIPYRIDAMOLE 25 MG/200 MG CAPSULE (FP) PO SCH ×2 (09:37→21:27)
[2017-01-22] MEDS: OXYBUTYNIN CHLORIDE 5 MG TABLET PO SCH ×2 (09:37→21:27)
--- NOTE | 2017-01-22 09:46 | PN ---
Progress Note (short form) - Note Progress Note: Neurology History of Present Illness This is an 81 YOM with h/o NIDDM, HTN, prostate CA s/p treatment, and distant ICH requiring surgery who presents c/o dizziness. He cannot recall the exact timing of the dizziness, but states it occurred overnight at about midnight when he stood up from bed to use the bathroom. He told his family about this in the morning and they brought him to see his PCP, Dr. Decker, who was concerned that he reported not being able to walk during this episode. Dr. Decker instructed the patient to come into the ED for evaluation. Here in the ED, the patient is somewhat of an unreliable historian. He completed MRI brain overnight which showed R posterior frontal CVA which may be incidental vs subclinical. Chronic R thalamick, R basal ganglia, L frontal infarcts noted. Adjusted ASA to Aggrenox for increased CVA protection. Carotid dopplers completed and reviewed, ordered CTA neck as recommended by radiologist. Completed study, awaiting final report. Family at bedside and gave them summary of events. Plan is for discharge home if no vascular intervention needed. Dr. Alvarenga, vascular surgery, note reviewed, following along. Active Medications Dipyridamole/Aspirin (Aggrenox -) 1 combo PO BID [facility] Last Admin: 01/22/17 09:37 Dose: 1 combo Insulin Aspart (Novolog Vial Sliding Scale -) 1 vial SQ ACHS [facility] PRN Reason: Protocol Last Admin: 01/22/17 06:08 Dose: Not Given Metformin HCl (Glucophage -) 500 mg PO BID@0700,1630 [facility] Last Admin: 01/21/17 17:20 Dose: Not Given Metoprolol Tartrate (Lopressor -) 25 mg PO BID [facility] Oxybutynin Chloride (Ditropan -) 5 mg PO BID [facility] Last Admin: 01/22/17 09:37 Dose: 5 mg Ramipril (Altace -) 5 mg PO DAILY [facility] Last Admin: 01/22/17 09:37 Dose: 5 mg Sitagliptin Phosphate (Januvia -) 50 mg PO DAILY@0700 [facility] Last Admin: 01/22/17 06:09 Dose: 50 mg Tamsulosin HCl (Flomax -) 0.4 mg PO DAILY@0830 [facility] Last Admin: 01/22/17 07:54 Dose: 0.4 mg *Physical Exam Vital Signs Period Temp Pulse Resp BP Sys/Levy Pulse Ox Last 24 Hr 97.6 F-98.1 F 47-77 16-20 120-182/62-83 97 Constitutional: Yes: Mild Distress Eyes: Yes: WNL HENT: Yes: WNL Neck: Yes: WNL Cardiovascular: Yes: WNL Respiratory: Yes: WNL Gastrointestinal: Yes: WNL Renal/: Yes: WNL Musculoskeletal: Yes: Muscle Weakness Extremities: Yes: WNL Edema: No Peripheral Pulses WNL: Yes Integumentary: Yes: WNL Wound/Incision: Yes: Clean/Dry Neurological: Yes: CN intact, sensory normal, strenght equal b/l, gait antalgic ...Motor Strength: WNL Psychiatric: Yes: WNL CBCD WBC 4.3 K/mm3 (4.0-10.0) D 01/20/17 12:55 RBC 3.88 M/mm3 (4.00-5.60) L 01/20/17 12:55 Hgb 12.2 GM/dL (11.7-16.9) 01/20/17 12:55 Hct 37.3 % (35.4-49) 01/20/17 12:55 MCV 96.3 fl (80-96) H 01/20/17 12:55 MCHC 32.7 g/dl (32.0-35.9) 01/20/17 12:55 RDW 13.6 % (11.9-15.9) 01/20/17 12:55 Plt Count 126 K/MM3 (134-434) L 01/20/17 12:55 MPV 11.5 fl (7.5-11.1) H 01/20/17 12:55 CMP Sodium 139 mmol/L (136-145) 01/20/17 12:55 Potassium 4.2 mmol/L (3.5-5.1) 01/20/17 12:55 Chloride 104 mmol/L (98-107) 01/20/17 12:55 Carbon Dioxide 26 mmol/L (21-32) 01/20/17 12:55 Anion Gap 9 (8-16) 01/20/17 12:55 BUN 24 mg/dL (7-18) H 01/20/17 12:55 Creatinine 1.1 mg/dL (0.7-1.3) 01/20/17 12:55 Creat Clearance w eGFR > 60 (>60) 01/20/17 12:55 Calcium 9.4 mg/dL (8.5-10.1) 01/20/17 12:55 Total Bilirubin 0.4 mg/dL (0.2-1.0) 01/20/17 12:55 AST 17 U/L (15-37) 01/20/17 12:55 ALT 18 U/L (12-78) 01/20/17 12:55 Alkaline Phosphatase 21 U/L (45-117) L 01/20/17 12:55 Total Protein 7.4 g/dl (6.4-8.2) 01/20/17 12:55 Albumin 4.3 g/dl (3.4-5.0) 01/20/17 12:55 Imaging as above Plan 81 YOM with h/o NIDDM, HTN, prostate CA s/p treatment, and distant ICH requiring surgery who presents c/o dizziness. He cannot recall the exact timing of the dizziness, but states it occurred overnight at about midnight when he stood up from bed to use the bathroom. He told his family about this in the morning and they brought him to see his PCP, Dr. Decker, who was concerned that he reported not being able to walk during this episode. Dr. Decker instructed the patient to come into the ED for evaluation. Here in the ED, the patient is somewhat of an unreliable historian. He completed MRI brain overnight which showed R posterior frontal CVA which may be incidental vs subclinical. Chronic R thalamic, R basal ganglia, L frontal infarcts noted. Adjusted ASA to Aggrenox for increased CVA protection. CTA neck completed, awaiting official report Dr. Alvarenga, vascular surgery following Blood pressure control, maintain Less than 140/90 Increased hydration recommended Fall precautions Physical therapy Discussed with family at bedside Otherwise stable at this time
--- NOTE | 2017-01-22 11:10 | PN ---
Progress Note, Physician History of Present Illness: Ambulates without dizziness. - Current Medication List Current Medications: Active Medications Dipyridamole/Aspirin (Aggrenox -) 1 combo PO BID [facility] Last Admin: 01/22/17 09:37 Dose: 1 combo Insulin Aspart (Novolog Vial Sliding Scale -) 1 vial SQ ACHS [facility] PRN Reason: Protocol Last Admin: 01/22/17 06:08 Dose: Not Given Metformin HCl (Glucophage -) 500 mg PO BID@0700,1630 [facility] Last Admin: 01/21/17 17:20 Dose: Not Given Metoprolol Tartrate (Lopressor -) 25 mg PO BID [facility] Oxybutynin Chloride (Ditropan -) 5 mg PO BID [facility] Last Admin: 01/22/17 09:37 Dose: 5 mg Ramipril (Altace -) 5 mg PO DAILY [facility] Last Admin: 01/22/17 09:37 Dose: 5 mg Sitagliptin Phosphate (Januvia -) 50 mg PO DAILY@0700 [facility] Last Admin: 01/22/17 06:09 Dose: 50 mg Tamsulosin HCl (Flomax -) 0.4 mg PO DAILY@0830 [facility] Last Admin: 01/22/17 07:54 Dose: 0.4 mg - Objective Vital Signs: Vital Signs Temperature 97.9 F 01/22/17 08:25 Pulse Rate 47 L 01/22/17 08:25 Respiratory Rate 16 01/22/17 08:25 Blood Pressure 139/72 01/22/17 08:25 O2 Sat by Pulse Oximetry (%) 97 01/21/17 21:00 Constitutional: Yes: No Distress, Calm Neck: Yes: Supple Cardiovascular: Yes: Regular Rate and Rhythm Respiratory: Yes: Regular, CTA Bilaterally Gastrointestinal: Yes: Normal Bowel Sounds, Soft Edema: No Labs: CBC, BMP 01/20/17 12:55 01/20/17 12:55 INR, PTT INR 0.96 (0.82-1.09) 01/20/17 12:55 - ....Imaging EKG: Report Reviewed (Tele: NSR with [facility]) Problem List - Problems (1) Cerebrovascular disease Code(s): I67.9 - CEREBROVASCULAR DISEASE, UNSPECIFIED (2) DMII (diabetes mellitus, type 2) Code(s): E11.9 - TYPE 2 DIABETES MELLITUS WITHOUT COMPLICATIONS Qualifiers: Diabetes mellitus complication status: without complication Diabetes mellitus special assemblies supervisor insulin use: unspecified special assemblies supervisor insulin use status Qualified Code(s): E11.9 - Type 2 diabetes mellitus without complications (3) Dizziness Code(s): R42 - DIZZINESS AND GIDDINESS (4) Hypertension Code(s): I10 - ESSENTIAL (PRIMARY) HYPERTENSION Qualifiers: Hypertension type: essential hypertension Qualified Code(s): I10 - Essential (primary) hypertension (5) Chronic kidney disease Code(s): N18.9 - CHRONIC KIDNEY DISEASE, UNSPECIFIED Qualifiers: Chronic kidney disease stage: stage 2 (mild) Qualified Code(s): N18.2 - Chronic kidney disease, stage 2 (mild) (6) Diastolic dysfunction Code(s): I51.9 - HEART DISEASE, UNSPECIFIED (7) Thoracic aortic aneurysm Code(s): I71.2 - THORACIC AORTIC ANEURYSM, WITHOUT RUPTURE Qualifiers: Presence of rupture: without rupture Qualified Code(s): I71.2 - Thoracic aortic aneurysm, without rupture (8) Premature atrial contraction Code(s): I49.1 - ATRIAL PREMATURE DEPOLARIZATION Assessment/Plan Echocardiogram: 03/24/2016 Normal LV size and fxn, mild MR, AR, mild-mod AR, mod ao dilatation 4.6 cm 1. Dizziness since resolved 2. Evidence of CVA on MRI study of the brain, multiple locations 3. Coronary artery disease, angina pectoris 4. 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 Hypertension 6. Diabetes mellitus 7. Hypercholesterolemia 8. Carotid stenosis 9. Chronic kidney disease 10. Thrombocytopenia 11. Thoracic aortic aneurysm 4.6 cm 12. PAC PLAN: 1. Continue Altace 5 qd, Lopressor 25 bid, Aggrenox bid 2. Chest CTA as outpatient to define size of TAA 3. Await neck CTA report 4. Patient may require extended monitoring to exclude potential paroxysmal atrial fibrillation as a culprit for the above-noted abnormal MRI of the brain/ multiple infarcts 5. Pending review of neck CTA report, july d/c from CV-standpoint with f/u in office [phone]
--- NOTE | 2017-01-22 14:46 | PN ---
Progress Note (short form) - Note Progress Note: PATIENT FEELS BETTER, HAD EPISODE OF ELEVATED BP YESTERDAY AND WAS STARTED ON LOPRESOR. PATIENT CONTINUED TO BE MONITORED ON TELEMETRY FOR PARAXYSMAL AFIB/ ARRYTHMIAS. AWAITING CTA CAROTID OFFICIAL READING AND CARDIOLOGY/VASC SURGERY CLEARANCE FOR DISCHARGE. [facility] HOME NURSE AGENCY/PT Problem List - Problems (1) DMII (diabetes mellitus, type 2) Code(s): E11.9 - TYPE 2 DIABETES MELLITUS WITHOUT COMPLICATIONS Qualifiers: Diabetes mellitus complication status: without complication Diabetes mellitus senior care insulin use: unspecified moth exterminator insulin use status Qualified Code(s): E11.9 - Type 2 diabetes mellitus without complications (2) Dizziness Code(s): R42 - DIZZINESS AND GIDDINESS (3) Fall Code(s): W19.XXXA - UNSPECIFIED FALL, INITIAL ENCOUNTER Qualifiers: Encounter type: initial encounter Qualified Code(s): W19.XXXA - Unspecified fall, initial encounter
[2017-01-22] MEDS: METOPROLOL TARTRATE 25 MG TABLET (FP) PO SCH (21:27)
[2017-01-23 05:05] VITALS: TEMP 98.6
[2017-01-23 06:57] VITALS: BP 131/71; PULSE 61
[2017-01-23] MEDS: INSULIN SLIDING SCALE (NOVOLOG) 1 VIAL SQ SCH (07:02)
[2017-01-23] MEDS: sitaGLIPtin PHOSPHATE 50 MG TABLET PO SCH (07:04)
--- NOTE | 2017-01-23 09:12 | PN ---
Progress Note, Physician Chief Complaint: Events noted Not in distress History of Present Illness: Patient was seen and examined. Awake and alert. Chart was reviewed Denies chest pain, SOB or palpitations CTA of the neck noted with no significant stenosis - Current Medication List Current Medications: Active Medications Dipyridamole/Aspirin (Aggrenox -) 1 combo PO BID [facility] Last Admin: 01/22/17 21:27 Dose: 1 combo Insulin Aspart (Novolog Vial Sliding Scale -) 1 vial SQ ACHS [facility] PRN Reason: Protocol Last Admin: 01/23/17 07:02 Dose: Not Given Metformin HCl (Glucophage -) 500 mg PO BID@0700,1630 [facility] Last Admin: 01/21/17 17:20 Dose: Not Given Metoprolol Tartrate (Lopressor -) 25 mg PO BID [facility] Last Admin: 01/22/17 21:27 Dose: 25 mg Oxybutynin Chloride (Ditropan -) 5 mg PO BID [facility] Last Admin: 01/22/17 21:27 Dose: 5 mg Ramipril (Altace -) 5 mg PO DAILY [facility] Last Admin: 01/22/17 09:37 Dose: 5 mg Sitagliptin Phosphate (Januvia -) 50 mg PO DAILY@0700 [facility] Last Admin: 01/23/17 07:04 Dose: 50 mg Tamsulosin HCl (Flomax -) 0.4 mg PO DAILY@0830 [facility] Last Admin: 01/22/17 07:54 Dose: 0.4 mg - Objective Vital Signs: Vital Signs Temperature 98.6 F 01/23/17 02:00 Pulse Rate 61 01/23/17 06:00 Respiratory Rate 20 01/23/17 06:00 Blood Pressure 131/71 01/23/17 06:00 O2 Sat by Pulse Oximetry (%) 96 01/22/17 20:45 Neck: Yes: Supple Cardiovascular: Yes: Regular Rate and Rhythm, S1, S2 Respiratory: Yes: CTA Bilaterally Gastrointestinal: Yes: Normal Bowel Sounds, Soft. No: Tenderness Edema: No Labs: CBC, BMP 01/20/17 12:55 INR, PTT INR 0.96 (0.82-1.09) 01/20/17 12:55 Problem List - Problems (1) Cerebrovascular disease Code(s): I67.9 - CEREBROVASCULAR DISEASE, UNSPECIFIED (2) Chronic kidney disease Code(s): N18.9 - CHRONIC KIDNEY DISEASE, UNSPECIFIED Qualifiers: Chronic kidney disease stage: stage 2 (mild) Qualified Code(s): N18.2 - Chronic kidney disease, stage 2 (mild) (3) DMII (diabetes mellitus, type 2) Code(s): E11.9 - TYPE 2 DIABETES MELLITUS WITHOUT COMPLICATIONS Qualifiers: Diabetes mellitus complication status: without complication Diabetes mellitus intermodal truck driver insulin use: unspecified assisted insulin use status Qualified Code(s): E11.9 - Type 2 diabetes mellitus without complications (4) Diastolic dysfunction Code(s): I51.9 - HEART DISEASE, UNSPECIFIED (5) Dizziness Code(s): R42 - DIZZINESS AND GIDDINESS (6) Hypertension Code(s): I10 - ESSENTIAL (PRIMARY) HYPERTENSION Qualifiers: Hypertension type: essential hypertension Qualified Code(s): I10 - Essential (primary) hypertension (7) Thoracic aortic aneurysm Code(s): I71.2 - THORACIC AORTIC ANEURYSM, WITHOUT RUPTURE Qualifiers: Presence of rupture: without rupture Qualified Code(s): I71.2 - Thoracic aortic aneurysm, without rupture Assessment/Plan 1. Dizziness 2. Evidence of CVA on MRI study of the brain, multiple locations 3. Coronary artery disease, angina pectoris 4. 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 Hypertension 6. Diabetes mellitus 7. Hypercholesterolemia 8. Carotid stenosis 9. Chronic kidney disease 10. Thrombocytopenia 11. Thoracic aortic aneurysm 4.6 cm 12. PAC PLAN: 1. Continue Altace 5 qd, Lopressor 25 bid and Aggrenox bid 2. Chest CTA as outpatient to define size of TAA 3. Neck CTA result reviewed 4. Patient may require extended monitoring to exclude potential paroxysmal atrial fibrillation as a culprit for the above-noted abnormal MRI of the brain/ multiple infarcts, but can be done as outpatient Discharge planning cardiac standpoint Jhonatan Lagunas MD
[2017-01-23 09:25] LABS: ANION GAP 5 (8-16); CALCIUM 8.5 mg/dL (8.5-10.1); CO2 27 mmol/L (21-32); CREATININE 1.2 mg/dL (0.7-1.3); GLUCOSE,RANDOM 190 mg/dL (74-106)
[2017-01-23] MEDS: RAMIPRIL 5 MG CAPSULE (FP) PO SCH (09:27)
[2017-01-23] MEDS: ASPIRIN/DIPYRIDAMOLE 25 MG/200 MG CAPSULE (FP) PO SCH (09:27)
[2017-01-23] MEDS: METOPROLOL TARTRATE 25 MG TABLET (FP) PO SCH (09:27)
[2017-01-23] MEDS: OXYBUTYNIN CHLORIDE 5 MG TABLET PO SCH (09:27)
[2017-01-23] MEDS: TAMSULOSIN HCL 0.4 MG CAP.ER.24H (FP) PO SCH (09:27)
--- NOTE | 2017-01-23 09:30 | DS ---
Physical Examination Vital Signs: Vital Signs Temperature 98.6 F 01/23/17 02:00 Pulse Rate 61 01/23/17 06:00 Respiratory Rate 20 01/23/17 06:00 Blood Pressure 131/71 01/23/17 06:00 O2 Sat by Pulse Oximetry (%) 96 01/22/17 20:45 Findings/Remarks: FEELS BETTER Cardiovascular: Yes: Regular Rate and Rhythm Respiratory: Yes: Regular, CTA Bilaterally Gastrointestinal: Yes: Normal Bowel Sounds, Soft Labs: CBC, BMP 01/20/17 12:55 01/23/17 08:50 Discharge Summary Reason For Visit: DIZZINESS Current Active Problems Cerebrovascular disease (Acute) Chronic kidney disease (Acute) DMII (diabetes mellitus, type 2) (Acute) Diastolic dysfunction (Acute) Dizziness (Acute) Hypertension (Acute) Premature atrial contraction (Acute) Thoracic aortic aneurysm (Acute) Hospital Course: 81 YOM with h/o NIDDM, HTN, prostate CA s/p treatment, and distant ICH requiring surgery who presents c/o dizziness. He cannot recall the exact timing of the dizziness,. He states it occured at night when he got up to use bathroom felt light headed and weak,family concerned brought him to see his pcp,which warranted evaluation for orthostatic bp concerns,he states his sugars have been occasionaly elevated denies low sugars,or blurred vision. - History Source History Provided By: Patient - Past Medical History Cardio/Vascular: Yes: HTN Endocrine: Yes: Diabetes Mellitus - Problems (1) DMII (diabetes mellitus, type 2) Code(s): E11.9 - TYPE 2 DIABETES MELLITUS WITHOUT COMPLICATIONS Qualifiers: Diabetes mellitus complication status: without complication Diabetes mellitus local intermodal truck driver insulin use: unspecified local intermodal truck driver insulin use status Qualified Code(s): E11.9 - Type 2 diabetes mellitus without complications (2) Dizziness. 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 Thoracic aortic aneurysm 4.6 cm Chest CTA as outpatient to define size of TAA Condition: Fair - Instructions Diet, Activity, Other Instructions: HOME HEALTH AID WITH [facility] ADA/LOW FAT/LOW SODIUM DIET Disposition: VNS/HOME HEALTH CARE - Home Medications Comprehensive Discharge Medication List: Ambulatory Orders Aspirin/Dipyridamole [Aggrenox -] 1 combo PO BID #60 capsule 01/21/17 Bicalutamide 50 mg PO DAILY #0 tab 01/21/17 Cholecalciferol (Vitamin D3) [Vitamin D3] 2,000 unit PO DAILY #0 tab 01/21/17 Cyanocobalamin [Vitamin B12 -] 1,000 mcg PO DAILY #0 tab 01/21/17 Fenofibrate Nanocrystallized [Tricor] 145 mg PO DAILY #0 tab 01/21/17 Ferrous Sulfate 325 mg PO BID #0 tab 01/21/17 Metformin HCl 500 mg PO BID #0 tab 01/21/17 Oxybutynin Chloride 5 mg PO DAILY #0 tab 01/21/17 Oxybutynin Chloride [Ditropan -] 5 mg PO BID tablet 01/21/17 Ramipril 5 mg PO DAILY #0 tab 01/21/17 Ramipril [Altace] 5 mg PO DAILY capsule 01/21/17 Tamsulosin HCl 0.4 mg PO DAILY #0 tab 01/21/17 Tamsulosin HCl [Flomax -] 0.4 mg PO DAILY@0830 cap.er.24h 01/21/17 Metoprolol Tartrate [Lopressor -] 25 mg PO BID #60 tablet 01/23/17
== END 2017-01-23 12:14 | disposition home health service (06) | DRG 65 ==
LOC: JER 11:06 → OBSVTOIN 12:27 → JERBED 12:27 → INTOOBSV 12:27 → UNDOADMOB 12:27 → INTOOBSV 12:51 → UNDOADMOB 12:51 → JERBED 12:51 → UNDOADMOB 14:30 → J4W 15:51 → JERBED 15:51 → UNDODISOB 18:17
PROVIDERS: ADMIT Family Medicine; ATTEND Family Medicine
DX: I63.8 Other cerebral infarction (principal); I25.110 Atherosclerotic heart disease of native coronary artery with unstable angina pectoris; I13.0 Hypertensive heart and chronic kidney disease with heart failure and stage 1 through stage 4 chronic kidney disease, or unspecified chronic kidney disease; R42 Dizziness and giddiness; I50.89 Other heart failure; R26.81 Unsteadiness on feet; E78.00 Pure hypercholesterolemia, unspecified; D69.6 Thrombocytopenia, unspecified; E11.22 Type 2 diabetes mellitus with diabetic chronic kidney disease; N18.2 Chronic kidney disease, stage 2 (mild); I71.2 Thoracic aortic aneurysm, without rupture; I49.1 Atrial premature depolarization; Z85.46 Personal history of malignant neoplasm of prostate
CPT/HCPCS: 36415; 70498-TC; 70551-TC; 71020-TC; 80048; 80053; 80061; 81003; 83036; 83721; 83735; 84100; 85025; 85610; 85730; 86850; 86900; 86901; 87086; 87186; 93005; 93010; 93306-TC; 93880-TC; 97116-GP; 97161-GP; 99285-25; G0378

== ENCOUNTER 2017-02-04 07:22 | Day surgery (SDC) | payer OTHER ==
[2017-02-03 15:25] VITALS: BMI 20.6
[2017-02-04] MEDS ORDERED: LIDOCAINE HCL 2% (20ML MULTI-DOSE VIAL) NR ONE (08:02)
[2017-02-04] MEDS ORDERED: PROPOFOL 20 ML ONE ×2 (08:02)
[2017-02-04] MEDS ORDERED: LIDOCAINE VISCOUS 2% ORAL/TOP 20 ML UNIT-DOSE CUP MM ONE (09:06)
[2017-02-04 09:25] VITALS: TEMP 97.8
[2017-02-04 10:14] VITALS: PULSE 52
[2017-02-04 10:18] VITALS: BP 142/66
== END 2017-02-04 10:29 | disposition home or self-care (01) ==
LOC: JASU-ENDO 07:22
PROVIDERS: ATTEND Internal Medicine Cardiovascular Disease
PROC: B246ZZ4 Ultrasonography of Right and Left Heart, Transesophageal (ICD-10-PCS; principal; 2017-02-04 08:15)
DX: G45.9 Transient cerebral ischemic attack, unspecified (principal)
CPT/HCPCS: 93312; 93325